=== PATIENT | female | born 1955 | race Caucasian/White ===

== ENCOUNTER 2017-01-30 13:22 | Outpatient (CLI) | payer BC ==
--- NOTE | 2017-01-30 15:40 | Diagnostic Imaging Report ---
SORAIDA TRISTAN [facility] [place] [facility] [address] [facility] [address] [place], [place]. [address] Report Submission Date: Jan 30, 2017 1:48:17 PM PLASTIC SHEETING CUTTER Patient Study Name: BRANDIE NICHOLE Date: Jan 30, 2017 1:39:54 PM PLASTIC SHEETING CUTTER Modality Type: CR Gender: F Description: CHEST : 57 Institution: [facility] [place] [facility] Physician: SORAIDA TRISTAN Examination: PA and lateral chest. History: Evaluate lung muhammad. Comparison exam: None provided Findings: PA lateral chest demonstrate a normal cardiac and mediastinal silhouette. Mild parenchymal haziness involving the right inferior hilum. Remaining lung muhammad are clear No blunting of the costophrenic margins. Osseous structures are appropriate for age. Impression: Mild right infrahilar hazy infiltrate. No effusion. Electronically signed on Jan 30, 2017 1:48:17 PM PLASTIC SHEETING CUTTER by: Timbo THACKER
== END 2017-01-30 13:23 ==
LOC: RAD 13:22
PROVIDERS: ATTEND Family Medicine
DX: R07.9 Chest pain, unspecified (principal)
CPT/HCPCS: 71020

== ENCOUNTER 2017-03-21 10:12 | Outpatient (CLI) | payer BC ==
[2017-03-21 11:00] LABS: BASOPHILS % 0.7 (0.0-1.5); EOSINOPHILS % 2.5 % (0.0-6.8); MEAN CORPUSCULAR HEMOGLOBIN 33.1 pg (28.0-34.0); MEAN CORPUSCULAR VOLUME 97.7 fl (80.0-100.0); MONOCYTES % 6.4 % (0.0-11.0)
[2017-03-21 11:16] LABS: eGFR (African) > 60; eGFR (Non-African) > 60
--- NOTE | 2017-03-21 12:13 | Diagnostic Imaging Report ---
CHARLIE BARTLETT [facility] [address] [facility] [address] [address] Report Submission Date: Mar 21, 2017 10:52:30 AM MACHINE TOOL ELECTRICIAN Patient Study Name: BRANDIE NICHOLE Date: Mar 21, 2017 10:23:05 AM MACHINE TOOL ELECTRICIAN Modality Type: CR Gender: F Description: UPPER EXTREMITY : 57 Institution: [facility] Physician: CHARLIE BARTLETT Examination: Plain film hands History: Hand discomfort Comparison exams: None available Findings: 3 views the right and left hands demonstrates articular degenerative changes - most pronounced involving the 1st carpal metacarpal articulation. No fracture. No dislocation. No soft tissue abnormality. Impression: Moderate osteoarthritic degenerative changes. Electronically signed on Mar 21, 2017 10:52:30 AM MACHINE TOOL ELECTRICIAN by: Timbo THACKER
== END 2017-03-21 10:13 ==
LOC: RAD 10:12
PROVIDERS: ATTEND Internal Medicine
DX: M13.0 Polyarthritis, unspecified (principal); R07.9 Chest pain, unspecified; R91.8 Other nonspecific abnormal finding of lung field
CPT/HCPCS: 36415; 80053; 85025; 85651; 86140; 86200; 86431

== ENCOUNTER 2017-04-03 13:49 | Outpatient (CLI) | payer BC ==
--- NOTE | 2017-04-03 15:25 | Diagnostic Imaging Report ---
CHARLIE BARTLETT [facility] [address] [facility] [address] [place], [place]. [address] Report Submission Date: Apr 03, 2017 3:21:49 PM TARIFF COMPILER Patient Study Name: BRANDIE NICHOLE Date: Apr 03, 2017 2:04:36 PM TARIFF COMPILER Modality Type: CT\SR Gender: F Description: CT CHEST W/O CONTRAST : 57 Institution: [facility] Physician: CHARLIE BARTLETT Examination: CT chest History: Chest discomfort Comparison exams: Plain film chest dated 30 January 2017 Technique: CT chest without contrast protocol Findings: Lung parenchyma demonstrates diffuse interstitial ground glass opacity. Posterior band of atelectasis/scarring. No focal consolidative process. Lung pleura and pulmonary vascularity are without irregularity. No posterior pleural effusion. Anterior mediastinum and ed are without gross mass or pathologic adenopathy: though sensitivity is reduced on a noncontrast exam. Thoracic aorta without evidence for aneurysm. Mild peripheral atherosclerotic disease. Cardiac silhouette not enlarged. No pericardial effusion. Scattered coronary vascular calcifications. Lower neck structures and upper abdominal organs are without gross abnormality. Degenerative spurring of the thoracic vertebral bodies. Impression: Diffuse ground glass interstitial parenchymal pattern without focal consolidation or lesion. Correlate with any underlying pulmonary medical condition injury. No evidence for effusion. Electronically signed on Apr 03, 2017 3:21:49 PM TARIFF COMPILER by: Timbo THACKER
== END 2017-04-03 13:50 ==
LOC: RAD 13:49
PROVIDERS: ATTEND Internal Medicine
DX: M13.0 Polyarthritis, unspecified (principal)
CPT/HCPCS: 71250

== ENCOUNTER 2017-04-05 11:20 | Outpatient (CLI) | payer BC ==
--- NOTE | 2017-04-09 13:26 | OP Clinic Progress Note ---
Dear Dr. Hernandez: REASON FOR VISIT: Maria Teresa Guerra returns for follow up of painful hands. I put her on a little bit of prednisone. She has had no significant improvement. Most of her pain today is in the right upper chest, near the scapula. It is worse with deep breathing. It is worse with raising her arm. She has also noted progressive changes in her fingertips. Otherwise, she has not had any fevers, chills, or sweats. She does have some fatigue. No overt dyspnea. She does have a dry, nonproductive cough every morning. No skin rashes or photosensitivity. PAST MEDICAL HISTORY: 1. Hypertension. 2. Rotator cuff disease. 3. Hysterectomy. 4. Cervical spine surgery. 5. Four pregnancies. PRESENT MEDICATIONS: 1. Lisinopril 20 mg daily. 2. Tramadol as needed. 3. Prednisone twice a day. ALLERGIES: Codeine. SOCIAL HISTORY: She continues to smoke. PHYSICAL EXAMINATION: GENERAL: She looks well. VITAL SIGNS: Height: 5 feet. Weight: 132. T: 97.1, R: 20, P: 70, BP: 140 /86. HEENT: Grossly unremarkable. LUNGS: Clear with no crackles, wheezing, or rubs. HEART: Regular rhythm. ABDOMEN: Soft and nontender. VASCULAR: No edema or cyanosis. POSTERIOR CHEST/BACK: Reveals some point tenderness in the mid-thoracic region and some paraspinal discomfort. No spinal discomfort. No pain in compression of her rib cage. Pain is reproduced with abduction____?? and internal rotation of her right shoulder. JOINTS: No synovitis at the DIPs and PIPs. She does have what appears to be clubbing symmetrically. RADIOLOGY: I personally reviewed the x-rays of her hands. She has no periostitis. No erosions. She has minimal changes of osteoarthritis. No significant soft tissue swelling. CT of her chest shows diffuse ground-glass appearance. No definite mass or adenopathy. LABORATORY: Rheumatoid factor was 11. CCP was 1.2. CBC and CMP were within normal limits. IMPRESSION: 1. Polyarthritis. 2. Abnormal CT of her chest. 3. Clubbing, as above. 4. I suspect chronic right rotator cuff pathology. PLAN: 1. We will obtain ABGs, PFTs with DLCO, and a Pulmonary consultation. 2. No other changes at this time. Best regards, cc: Dr. Angelina THACKER
== END 2017-04-05 11:21 ==
LOC: RHEU 11:20
PROVIDERS: ATTEND Internal Medicine
DX: M13.0 Polyarthritis, unspecified (principal); R68.3 Clubbing of fingers; R91.8 Other nonspecific abnormal finding of lung field
CPT/HCPCS: 99214; G0463

== ENCOUNTER 2017-04-15 06:57 | Outpatient (CLI) | payer BC ==
[2017-04-15] MEDS ORDERED: ALBUTEROL SULFATE 2.5 MG/3 ML AMPUL.NEB NEB ONE (07:23)
[2017-04-15 07:35] LABS: ABG BASE EXCESS -0.2 (-2 - +2); ABG PH 7.42 (7.35-7.45)
== END 2017-04-15 07:00 ==
LOC: RT 06:57
PROVIDERS: ATTEND Internal Medicine
DX: R06.02 Shortness of breath (principal)
CPT/HCPCS: 36600; 82803; 94060

== ENCOUNTER 2017-04-19 13:50 | Outpatient (CLI) | payer BC ==
--- NOTE | 2017-04-29 13:22 | CONSULTATION REPORT ---
PRIMARY CARE PROVIDER: Dr. Angelina Hernandez CONSULTING PHYSICIAN: Angelina Koroma MD CHIEF COMPLAINT: "I do not have any breathing problems but the fiscal specialist sent me here because of my fingers." (Please note that the patient is showing me bilateral clubbed digits on both hands). SIGNIFICANT PROBLEM LIST: 1. Moderate chronic obstructive pulmonary disease (COPD), GOLD Class 2. 2. 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 3. Chronic right shoulder pain: That is post steroid shots. 4. Hypertension. 5. Neck surgery. 6. Hysterectomy. 7. Current tobacco use. HISTORY OF PRESENT ILLNESS: This is a 62-year-old female who states that she has absolutely no respiratory complaints but has been complaining of pain in her hands and was sent to the fiscal specialist. Dr. Beckett was concerned regarding clubbing and possible hypertrophic osteopathy and ordered a chest CT scan and then referred the patient to the Pulmonary Clinic. She denies shortness of breath. There is no dyspnea on exertion. There is no chest pain. No postnasal drip. No pedal edema. No GERD. Patient has never been on prednisone or antibiotics for her lungs. There is no hemoptysis. She denies any previous history of asthma, pneumonia, or DVTs. She does have a daily cough in the morning when she arises. At times, it will be productive of clear phlegm. Her weight is stable. Appetite is good. Her energy level is good. Patient is active in her daily life. 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 Tobacco use, patient continues to smoke 1 pack per day and has been smoking for 30 years. Although she has negotiated with Dr. Hernandez for a "quit date" of May 01 and will be starting on Chantix. REVIEW OF SYSTEMS: Please see HPI for pertinent review of systems, otherwise, please see [facility] patient intake record. MEDICATIONS: 1. Lisinopril 40 mg daily. 2. Tramadol 50 mg b.i.d. 3. Escitalopram 10 mg daily. 4. Oxalate 10 mg daily. 5. Tylenol p.r.n. 6. Advil p.r.n. ALLERGIES: Codeine. 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 She is a current tobacco user (see HPI). FAMILY HISTORY: Cancer and lung disease. PHYSICAL EXAMINATION: Vital Signs: BP: 150/93, P: 75, R: 20, T: 98.7. Room air oxygen saturation is 95%. Height: 5 feet. Weight: 130 pounds. BMI: 25.4. General: This is a well-developed, well-nourished female in no acute distress speaking in full sentences. HEENT: Pupils are equal and reactive to light. Oropharynx is clear. No thrush. No erythema. NECK: Supple. No JVD. No adenopathy. LUNGS: Good bilateral air excursion. No wheezes, rhonchi, or rales. No tactile fremitus. CARDIAC: Rate and rhythm are regular. S1, S2 without S3 or S4. There are no rubs or gallops. There is a 2/6 systolic murmur heard at the apex without radiation to the axilla. ABDOMEN: Positive bowel sounds. Soft and nontender. No organomegaly. EXTREMITIES: No cyanosis or edema. Clubbing of both hands. NEUROLOGIC: Alert and oriented x3. Grossly nonfocal exam. IMAGING: All imaging independently reviewed by me personally. 1. Pulmonary function test (PFT) on April 15, 2017: FVC of 2.2 liters, 87 % of predicted; FEV1 of 1.33 liters, 64% of predicted, FEV1 of 0.60 ? Interpretation: Moderate COPD, GOLD Class 2. 2. ABG on April 15, 2017: Showed a pH of 7.42, pCo2 of 37, pO2 of 67, oxygen saturation of 93%. 3. Six-minute walk on April 19, 2017: Resting pulse of 65, resting oxygen saturation at 96%. After 6 minutes, pulse is 85, oxygen saturation is 97%. During the walk, the pulse did not increase above 85 and the oxygen saturation never went below 92%. He was able to walk at a moderate pace and speak in complete sentences. 4. Chest CT scan on April 03, 2017: Ground glass opacities in the lower lobes. Emphysema. 5. Bilateral plain film of the hands on March 21, 2017: Degenerative changes per report. There is no periosteal changes. 6. Chest x-ray on January 30, 2017: Bibasilar haziness. LABORATORIES: 1. CBC on March 21, 2017: Hemoglobin 15, hematocrit 45, white blood cell count 10.3, platelets 238,000. 2. Chemistry on March 21, 2017: Sodium 135, potassium 4.4, chloride 99, bicarbonate 27, BUN 13, creatinine 0.8, glucose of 104. ASSESSMENT AND PLAN: PROBLEM #1: Bilateral digital clubbing with an abnormal chest CT scan. Of course, the concern with clubbing is that it is a marker for underlying lung carcinoma. There is no evidence on the current chest CT scan of a discrete lung carcinoma. Other pulmonary abnormalities that can also be seen is early interstitial lung disease, respiratory bronchiolitis- ILD, and precursor of smoker's emphysema. Aside from pulmonary issues associated with clubbing, clubbing can be observed with cardiac jfrhw-rj-[id number] shunts and also with cirrhosis. 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 PLAN: 1. Patient to have a high resolution chest CT scan. 2. Consider a bubble echo. PROBLEM #2: Current tobacco use. Patient has already been in discussion regarding tobacco cessation with Dr. Angelina Hernandez. According to the patient, she has a "quit date" of April, and she will be starting Chantix under the supervision of Dr. Hernandez. PLAN: Continue to encourage tobacco cessation. PROBLEM #3: Moderate chronic obstructive pulmonary disease (COPD), GOLD Class 2. Currently, the patient is not symptomatic from a pulmonary standpoint and not interested in inhalers at present. PLAN: Discuss with the patient on next visit again regarding the role of bronchodilators in COPD. PROBLEM #4: Pulmonary preventative medicine. Patient does need a flu shot and a Pneumovax. PLAN: Patient will return to clinic after her high-resolution CT scan is complete. cc: Dr. Angelina THACKER
== END 2017-04-19 13:52 ==
LOC: PULMONARY 13:50
PROVIDERS: ATTEND Internal Medicine Pulmonary Disease
DX: R68.3 Clubbing of fingers (principal); R91.8 Other nonspecific abnormal finding of lung field; Z72.0 Tobacco use; J44.9 Chronic obstructive pulmonary disease, unspecified; G89.29 Other chronic pain; I10 Essential (primary) hypertension
CPT/HCPCS: 99213; 99214

== ENCOUNTER 2017-05-02 09:54 | Outpatient (CLI) | payer BC ==
--- NOTE | 2017-05-02 14:54 | Diagnostic Imaging Report ---
FRANCK TONY [facility] [address] [facility] [address] [place], [place]. [address] Report Submission Date: May 02, 2017 11:22:38 AM INFORMATION TECHNOLOGY TEACHER Patient Study Name: BRANDIE NICHOLE Date: May 02, 2017 10:06:13 AM INFORMATION TECHNOLOGY TEACHER Modality Type: CT\SR Gender: F Description: CT CHEST W/O CONTRAST : 57 Institution: [facility] Physician: FRANCK TONY Examination: CT chest History: CT CHEST W/O, HIGH RESOLUTION, GROUND GLASS OPACITY ON PRIOR EXAM FROM 04/03/17, FOLLOW UP (Hx) / GROUND GLASS OPACITY ON PRIOR EXAM (DICOM Hx) Comparison exams: CT chest dated 03 April 2017. Technique: CT chest without contrast high resolution protocol Findings: Lung parenchyma demonstrates continued diffuse interstitial ground glass opacity. Mild posterior atelectasis/scarring. No focal consolidative process. Lung pleura and pulmonary vascularity are without irregularity. No posterior pleural effusion. No appreciable bronchial wall thickening. Anterior mediastinum and ed are without gross mass or pathologic adenopathy: though sensitivity is reduced on a noncontrast exam. Few scattered subcentimeter lymph nodes. Thoracic aorta without evidence for aneurysm. Mild peripheral atherosclerotic disease. Cardiac silhouette not enlarged. No pericardial effusion. Scattered coronary vascular calcifications. Lower neck structures and upper abdominal organs have remained stable. Stable enlargement of the left adrenal gland measuring 3.3 cm. Central HU of 2. Degenerative spurring of the thoracic vertebral bodies. Impression: Continued diffuse ground glass interstitial parenchymal pattern without focal consolidation or lesion. Correlate with any underlying pulmonary medical condition or injury. No evidence for effusion. Stable left adrenal presumed adenoma. Electronically signed on May 02, 2017 11:22:38 AM INFORMATION TECHNOLOGY TEACHER by: Timbo THACKER
== END 2017-05-02 09:55 ==
LOC: RAD 09:54
PROVIDERS: ATTEND Internal Medicine Pulmonary Disease
DX: R06.02 Shortness of breath (principal); T14.90XA Injury, unspecified, initial encounter
CPT/HCPCS: 71250

== ENCOUNTER 2017-05-31 13:53 | Outpatient (CLI) | payer BC ==
--- NOTE | 2017-06-11 10:46 | OP Clinic Progress Note ---
PRIMARY CARE PROVIDER: Dr. Angelina Hernandez CHIEF COMPLAINT: "I am here to review the results of the chest CT scan." SIGNIFICANT PROBLEM LIST: 1. Moderate chronic obstructive pulmonary disease, GOLD Class 2. 2. Patchy diffuse ground glass opacities on chest CT scan on May 02, 2017. 3. Chronic right shoulder pain: Treated with steroid injections. 4. Hypertension. 5. Neck surgery. 6. Hysterectomy. 7. Current tobacco use. HISTORY OF PRESENT ILLNESS: Patient did start Chantix on May 01, 2017, under the direction of Dr. Hernandez. She states she is still smoking but smoking less. Her current dose of Chantix is 0.5 mg b.i.d. She used to smoke 1 pack per day and is now down to half a pack per day. She states that she feels good. She is extremely active and only gets slightly dyspneic going up the stairs. Patient states that she does not have a follow up with Dr. Beckett, the certified diabetes educator, and only needs to see him on a p.r.n. basis. ALLERGIES: Codeine. MEDICATIONS: 1. Lisinopril 40 mg daily. 2. Tramadol 50 mg p.r.n. 3. Escitalopram 10 mg daily. 4. Chantix 0.5 mg b.i.d. 5. Tylenol p.r.n. 6. Advil p.r.n. PHYSICAL EXAMINATION: VITAL SIGNS: BP: 143/90, P: 77, R: 20, T: 97.5, oxygen saturation is 96% on room air. Weight: 130 pounds. BMI is 25.4. GENERAL: This is a well-developed, well-nourished female in no acute distress speaking in full sentences. HEENT: Pupils are equal and reactive to light. Oropharynx is clear. No thrush. No erythema. NECK: Supple. No adenopathy. LUNGS: Good equal bilateral air excursion. No wheezes, crackles, or rhonchi. CARDIAC: Rate and rhythm are regular. No murmur, rubs, or gallops. ABDOMEN: Soft and nontender. EXTREMITIES: No clubbing. IMAGING: All imaging was reviewed by me personally. 1. High-resolution CT scan on May 02, 2017. Ground glass opacities, patchy and diffuse, worse in the lower lobes. ASSESSMENT AND PLAN: PROBLEM #1: Abnormal chest CT scan without digital clubbing. I have examined her hands more closely and compared them to an up to date schematic that illustrates what the angle of the digit to the nail bed should be. In my opinion, she does not meet the parameters for clubbing. On several fingers, her distal interphalangeal joint is raised. The CT of high- resolution does show patchy diffuse ground glass opacities. I still think that this is due to her smoking and most likely respiratory bronchiolitis interstitial lung disease (ILD). I discussed with the patient that because of her smoking, cancer is always a concern, albeit, it would be very atypical to have lung cancer with the findings on chest CT scan, but we did discuss the option of bronchoscopy. PLAN: 1. Continue to cut down quit tobacco use. 2. Repeat high-resolution chest CT scan in October. 3. At present, patient does not want a bronchoscopy. PROBLEM #2: Current tobacco use. Patient is using Chantix under the supervision of Dr. Hernandez and her smoking has gone to 1 pack per day down to half a pack per day. I strongly encouraged her to continue with the ultimate goal of tobacco cessation. PLAN: 1. Continue Chantix. 2. Work towards tobacco cessation. PROBLEM #3: Moderate chronic obstructive pulmonary disease, GOLD Class 2. At the present time, patient is not interested in inhalers. PLAN: Return to clinic after high-resolution CT scan in October. cc: Dr. Angelina THACKER
== END 2017-05-31 14:00 ==
LOC: PULMONARY 13:53
PROVIDERS: ATTEND Internal Medicine Pulmonary Disease
DX: J44.9 Chronic obstructive pulmonary disease, unspecified (principal); R91.8 Other nonspecific abnormal finding of lung field; M25.511 Pain in right shoulder; G89.29 Other chronic pain; I10 Essential (primary) hypertension; Z72.0 Tobacco use; Z90.711 Acquired absence of uterus with remaining cervical stump
CPT/HCPCS: 99213; 99214

== ENCOUNTER 2017-10-16 16:33 | Outpatient (CLI) | payer BC | END 2017-10-16 16:35 | LOC: LABRHC 16:33 | PROVIDERS: ATTEND Physician Assistant | DX: R30.0 Dysuria (principal) | CPT/HCPCS: 87086 ==

== ENCOUNTER 2017-10-21 16:29 | Outpatient (CLI) | payer BC ==
[2017-10-21 17:03] LABS: BASOPHILS % 0.7 (0.0-1.5); EOSINOPHILS % 0.4 % (0.0-6.8); MEAN CORPUSCULAR HEMOGLOBIN 34.8 pg (28.0-34.0); MEAN CORPUSCULAR VOLUME 100.3 fl (80.0-100.0); MONOCYTES % 6.4 % (0.0-11.0); NEUTROPHILS # 7.2 # k/uL (1.4-7.7)
[2017-10-21 18:02] LABS: eGFR (African) > 60; eGFR (Non-African) > 60
--- NOTE | 2017-10-21 18:47 | Diagnostic Imaging Report ---
[facility] [address] [facility] [address] [place], [place]. [address] Report Submission Date: Oct 21, 2017 6:25:40 PM CDT Patient Study Name: BRANDIE NICHOLE Date: Oct 21, 2017 4:46:58 PM CDT Modality Type: CT\SR Gender: F Description: CT ABD PELVIS W/O CO : 57 Institution: [facility] Physician: SORAIDA TRISTAN Computed tomography abdomen pelvis without contrast History: 1 week of left flank pain Findings: Transverse abdomen and pelvis sections are obtained without contrast. Bilateral air trapping is observed. A 2 x 3.1 cm left adrenal nodule measures 13 Hounsfield units. The kidneys, right adrenal, spleen, liver, and pancreas are unremarkable. The gallbladder is markedly contracted. Moderate colonic stool is present. Bowel loops exhibit normal caliber and wall thickness. Mild lumbar spondylosis is observed. Aortoiliac atherosclerosis is present. Pelvic sections reveal unremarkable bowel loops including a normal appendix. Vaginal prolapse, small cystocele, and small rectocele are observed. Hysterectomy has been performed. Impression: 1. No evidence of obstructive uropathy or urolithiasis. 2. Hysterectomy with vaginal prolapse, cystocele, and rectocele. 3. Air trapping. 4. Atherosclerosis and lumbar spondylosis. 5. Mild constipation. 6. Lipid poor left adrenal adenoma. Electronically signed on Oct 21, 2017 6:25:40 PM CDT by: Varun THACKER
== END 2017-10-21 16:30 ==
LOC: LAB 16:29
PROVIDERS: ATTEND Family Medicine
DX: R10.9 Unspecified abdominal pain (principal)
CPT/HCPCS: 36415; 74176; 80053; 85025

== ENCOUNTER 2018-02-20 14:02 | Outpatient (CLI) | payer BC | END 2018-02-20 14:03 | LOC: LAB 14:02 | PROVIDERS: ATTEND Surgery | DX: E27.9 Disorder of adrenal gland, unspecified (principal) | CPT/HCPCS: 82530 ==

== ENCOUNTER 2018-12-18 14:50 | Outpatient (CLI) | payer BC ==
--- NOTE | 2018-12-18 15:30 | Diagnostic Imaging Report ---
SORAIDA TRISTAN [facility] [address] [facility] [address] Report Submission Date: Dec 18, 2018 3:16:46 PM CDT Patient Study Name: BRANDIE NICHOLE Date: Dec 18, 2018 2:50:27 PM CDT Modality Type: DX Gender: F Description: LT HIP 2VIEW COMPLETE : 57 Institution: [facility] Physician: SORAIDA TRISTAN Exam: Left hip. History: Pain. AP and frogleg lateral view of the left hip are submitted. No signs of fracture or dislocation is seen. No bony erosions are seen. No soft tissue abnormalities identified. Impression: No bony abnormality. Electronically signed on Dec 18, 2018 3:16:46 PM CDT by: Christopher THACKER
== END 2018-12-18 14:53 ==
LOC: RAD 14:50
PROVIDERS: ATTEND Family Medicine
DX: M25.552 Pain in left hip (principal)